=== PATIENT | female | born 1995 | race Caucasian/White ===

== ENCOUNTER 2019-06-12 19:39 | Emergency (ER) | payer SELFPAY ==
[~2019-06-12] VITALS: Ht 162.6 cm; Wt 54.4 kg
--- NOTE | 2019-06-12 20:11 | NUR ---
Patient discharged to home in stable conditon. Written and verbal after care instructions given. Patient verbalizes understanding of instructions.
[2019-06-12 20:12] VITALS: BP 108/61
== END 2019-06-12 20:12 | disposition home or self-care (01) ==
LOC: ER 19:39
DX: J06.9 Acute upper respiratory infection, unspecified (principal); B34.9 Viral infection, unspecified; F17.200 Nicotine dependence, unspecified, uncomplicated
CPT/HCPCS: A4663

== ENCOUNTER 2019-09-11 19:43 | Emergency (ER) | payer BC ==
[~2019-09-11] VITALS: Ht 162.6 cm; Wt 54.4 kg
--- NOTE | 2019-09-11 19:50 | NUR ---
Dr. Daugherty at bedside for MSE
[2019-09-11] MEDS ORDERED: PENICILLIN G BENZATHINE 2.4 MMU/4 ML DISP.SYRIN IM ONE ×2 (20:00→20:02)
--- NOTE | 2019-09-11 20:26 | NUR ---
Patient discharged to home in stable condition. Written and verbal after care instructions given. Patient verbalizes understanding of instructions. Stressed follow up or return to ER for worsening s/s. Patient ambulating with steady gait. NAD noted
[2019-09-11 20:27] VITALS: BP 121/66
== END 2019-09-11 20:26 | disposition home or self-care (01) ==
LOC: ER 19:44
DX: J03.90 Acute tonsillitis, unspecified (principal); F17.210 Nicotine dependence, cigarettes, uncomplicated
CPT/HCPCS: A4663